=== PATIENT | male | born 1965 ===

== ENCOUNTER 2020-02-15 23:57 | Emergency (ER) | payer SELFPAY ==
--- NOTE | 2020-02-16 02:44 | HP ---
HISTORY OF PRESENT ILLNESS: This is an ER note. Brent is a 54-year-old male who was brought into the emergency room via [facility]. The patient was at a local bar in [facility], when he did stand up to use the restroom bystanders did witness him turning to go to the bathroom, ended up having a syncopal episode. He denies any head trauma involvement. He states that his friends did state he was out for a couple of minutes, kind of ashen mejia color. Upon EMS arrival, he was alert and orientated, did recall the fall itself; however, remembers everything prior to that and afterwards. He denies any headache. Denies any head trauma involvement. He does admit to alcohol use, which is routine for patient. Denies any intoxication as he is answering all questions appropriately. States that he did have a similar episode about 10 years ago roughly, had a syncopal episode and no known cause was found at that time. He denies any past medical history of any seizures. No coronary artery disease. No cardiac disorders. Denies any palpitations, heart arrhythmias. He states he does see Dr. Villarreal on a routine basis. Currently, he does not take any medications at this point in time. Only complains of restless legs that he has had for multiple years. Has tried prior medications in regard to this. Otherwise, overall states he is a healthy individual. The patient does state he had probably 8 alcoholic beverages or beers since 7 o'clock this evening. Currently, patient states he feels fine. Has no present symptoms whatsoever. The patient does admit that he usually hydrates well throughout the day as he works on a local farm by [facility]. He states he drinks about a gallon a day. However, today he did not have much water whatsoever. PAST MEDICAL HISTORY: Chronic illnesses include restless legs syndrome. PAST SURGICAL HISTORY: Includes inguinal hernia repair, vasectomy, hydrocele repair. SOCIAL HISTORY: The patient does drink routinely. Denies any smoking and does admit to chewing tobacco. FAMILY HISTORY: Reviewed per patient's clinic chart, noncontributory. REVIEW OF SYSTEMS: Currently, all review of systems is negative. Denies any headaches. No recent fevers. No chills. No upper respiratory systems. No blurry vision. No double vision. No loss of vision. No sore throat. No difficulty with speech. No unilateral weakness. No shortness of breath. No chest pain or palpitations in his chest. No skipped beats in his heart. He denies any chronic headaches. Denies any abdominal discomfort. No history of anemia. No GI complaints or urinary complaints. PHYSICAL EXAMINATION: VITAL SIGNS: Blood pressure 148/97, temp 97.6, oxygen is 99% on room air, pulse is 71, respirations 18. GENERAL: Pleasant cooperative male, sitting in the examination room. Does not really appear to be in any acute distress, not acutely ill. He is having normal conversation. Answered all questions appropriately. HEENT: Head is normocephalic and atraumatic. Sclera and conjunctivae are clear. Pupils equal, round, and reactive to light. Extraocular movements are intact. Nasal mucosa is pink and moist. Oral mucosa is pink and moist. Pharynx is clear. Tongue does not show any signs of any deficits. No biting of the tongue is noted. Speech is fluent. NECK: Supple. Trachea is midline. No lymphadenopathy. No thyroid nodules. LUNGS: Clear to auscultation. No adventitious sounds. Respirations equal and nonlabored. CARDIAC: Regular rate and rhythm. No murmurs, gallops, or rubs are noted. No carotid bruits are noted. Pedal pulses are 2+ and equal bilaterally. No pedal edema is noted. ABDOMEN: Soft. Bowel sounds present. No organomegaly. No guarding or rigidity. NEUROLOGIC: Cranial nerves 2 through 12 are grossly intact. Motor and sensory function are intact. No focal deficits are noted. SKIN: Uniformly pink, warm and dry. LAB: Overall is fairly stable. Potassium is at 3.4, with a sodium of 135. Cardiac enzymes are negative. LDH was 161. Liver enzymes are within normal limits. Magnesium was 2.3. CBC was grossly unremarkable. Anticoagulation studies were unremarkable. EKG did show normal sinus rhythm at [address] of the head was negative for any acute abnormalities via radiologist at [facility]. ASSESSMENT: SYNCOPAL EPISODE. PLAN: I did review all patient's ancillary tests that were completed. However, I did recommend the patient be admitted for observation status for continuous telemetry, IV fluids. The patient declined admission at this point in time, nor did he want extended ER stay. The patient did sign an AMA form as he understood the risks and benefits in regard to admission. I did discuss all other systems that the patient should be monitoring for. If any new neurological deficits, any concerns whatsoever, he was advised to return immediately. Again, I did encourage the patient that it would be in his best interest to stay within our facility tonight, just we could have close eye on him with continuous telemetry monitoring. Again, patient respectfully declined, did want to sign an AMA form as he planned on being discharged home. I do encourage patient to follow up with his primary provider. Do encourage him to refrain from any alcohol use for next 24 hours. It would be of benefit if he did hydrate with water or similar beverages with electrolytes. The patient will follow up with Dr. Villarreal, his primary provider. The patient was ambulatory, having normal conversation. He did arrange a ride via friend to take him home and he left against medical advice in satisfactory condition. JUAN MANUEL/PERLA /[id number]
[2020-02-16 08:25] LABS: PTT,PARTIAL THROMBOPLSTIN TIME 22.6 SEC (23.2-32.3)
[2020-02-16 08:26] LABS: CHLORIDE,CL 98 mEq/L (98-106); SODIUM,NA 135 mEq/L (136-145)
== END 2020-02-16 01:20 | disposition left against medical advice (07) ==
LOC: CC.ED 23:57
DX: R55 Syncope and collapse (principal); F17.220 Nicotine dependence, chewing tobacco, uncomplicated
CPT/HCPCS: 36415; 70450; 80053; 82550; 83615; 83690; 83735; 84484; 85025; 85610; 85730; 93005; 99285-25

== ENCOUNTER 2024-10-17 14:32 | Emergency (ER) | payer SELFPAY ==
[2024-10-17] MEDS: Diphtheria,Pertussis(Acell),Tetanus Vaccine 0.5 ML Syringe IM ONE (14:51)
== END 2024-10-17 16:09 ==
LOC: CC.ED 14:32
DX: S01.312A Laceration without foreign body of left ear, initial encounter (principal); Z23 Encounter for immunization; W19.XXXA Unspecified fall, initial encounter; Y92.009 Unspecified place in unspecified non-institutional (private) residence as the place of occurrence of the external cause
CPT/HCPCS: 90471; 90715; 99284-25